=== PATIENT | female | born 1985 | race Caucasian/White ===

== ENCOUNTER → 2017-01-12 | Outpatient (CLI) | payer BC ==
[~2017-01-12] MED LIST: BACTRIM DS 8001 TAB PO; DOXYCYCLINE 10100 MG PO; LORTAB 5/500 501 TAB PO; NO HOME MEDICATIONS; PRILOSEC20 MG PO; VALTREX1 GM PO; YAZ 28 3 MG-0.01 TAB PO
== END ==
LOC: MC.RAD 12:48
DX: N60.12 Diffuse cystic mastopathy of left breast (principal); N60.11 Diffuse cystic mastopathy of right breast